=== PATIENT | male | born 1945 | race Hispanic/Latino ===

== ENCOUNTER 2017-06-17 12:02 | Emergency (ER) | payer OTHER ==
[~2017-06-17 12:02] MED LIST: AMLO5TAB2 PO; CYAN1TAB44 PO; FISH1CAP49 PO; LISI40TA4 PO; LORA1TAB3 PO; LOVA20TA3 PO; OXYB5SYR2 PO; TAMS0.4C32 PO; TIMO5DRO35 OU; TRAV2.5D OU; VITA100014 PO
[2017-06-17 12:25] LABS: BASOPHILS % (AUTO) 0.6 % (0.0-5.0); EOSINOPHILS % (AUTO) 5.9 % (0.0-8.0); LYMPHOCYTES % (AUTO) 28.5 % (21.0-51.0); MEAN CORPUSCULAR HEMOGLOBIN 31.8 pg (27.0-33.0); MEAN CORPUSCULAR HGB CONC 34.2 g/dL (32.0-36.0); MEAN CORPUSCULAR VOLUME 93.1 fL (79-99); MONOCYTES % (AUTO) 8.8 % (3.0-13.0); NEUTROPHILS % (AUTO) 56.2 % (40.0-77.0); PLATELET COUNT (AUTO) 159 K/uL (130-400); RED BLOOD CELL COUNT(AUTO) 4.29 MIL/uL (4.50-6.20); RED CELL DISTRIBUTION WIDTH 14.1 % (11.0-15.5); WHITE BLOOD COUNT (AUTO) 6.1 K/uL (4.8-10.8)
[2017-06-17 12:39] LABS: CREATININE 0.8 mg/dL (0.5-1.5); POTASSIUM 3.9 mmol/L (3.5-5.1)
[2017-06-17 12:41] LABS: INR 0.92 (0.85-1.15); PARTIAL THROMBOPLASTIN TIME 25.9 SEC (26.3-35.5); PROTHROMBIN TIME 9.7 SEC (9.6-11.6)
[2017-06-17 12:43] LABS: ALBUMIN 3.5 g/dL (3.5-5.0); BILIRUBIN,TOTAL 0.5 mg/dL (0.2-1.0); TOTAL PROTEIN, SERUM 7.5 g/dL (6.0-8.3)
[2017-06-17] MEDS ORDERED: ASPIRIN 325MG EC TAB 325 MG TABLET.DR PO ONE (13:11)
[2017-07-05] MEDS ORDERED: PANT40TA25 PO (13:59)
[2017-07-05] MEDS ORDERED: FISH1CAP49 PO (13:59)
[2017-07-05] MEDS ORDERED: CHOL500050 PO (13:59)
[2017-07-05] MEDS ORDERED: ATOR20TA65 PO (13:59)
[2017-07-05] MEDS ORDERED: LORA1TAB3 PO (13:59)
[2017-07-05] MEDS ORDERED: RANO500T3 PO (13:59)
[2017-07-05] MEDS ORDERED: BRIM5DRO OU (13:59)
[2017-07-05] MEDS ORDERED: NITR0.4T50 SL (13:59)
[2017-07-05] MEDS ORDERED: OXYB10TA PO (13:59)
[2017-07-05] MEDS ORDERED: METO-408 PO (13:59)
[2017-07-05] MEDS ORDERED: ASPI-1197 PO (13:59)
[2017-07-05] MEDS ORDERED: VITA400C25 PO (13:59)
[2017-07-05] MEDS ORDERED: TRAVATAN OU (13:59)
[2017-07-05] MEDS ORDERED: TAMS0.4C32 PO (13:59)
== END 2017-06-17 13:48 | disposition home or self-care (01) ==
LOC: EDH 12:02
DX: R07.89 Other chest pain (principal); R10.9 Unspecified abdominal pain; R14.0 Abdominal distension (gaseous); E78.5 Hyperlipidemia, unspecified; I10 Essential (primary) hypertension; Z90.49 Acquired absence of other specified parts of digestive tract; Z87.891 Personal history of nicotine dependence
CPT/HCPCS: 36415; 71045; 80053; 82550; 83880; 84484; 85025; 85610; 85730; 93005

== ENCOUNTER 2017-07-07 09:11 | Day surgery (SDC) | payer OTHER ==
[2017-07-05 13:11] VITALS: BP 144/75
[2017-07-05 13:17] LABS: APPEARANCE,URINE Clear (CLEAR); BILIRUBIN,URINE Negative (NEGATIVE); COLOR,URINE Yellow (YELLOW); GLUCOSE, URINE (UA) Negative (NEGATIVE); KETONES,URINE Negative (NEGATIVE); LEUKOCYTE ESTERASE ,URINE Trace (NEGATIVE); NITRATE,URINE Negative (NEGATIVE); OCCULT BLOOD,URINE Negative (NEGATIVE); PROTEIN,URINE Negative (NEGATIVE); UROBILINOGEN,URINE 0.2 mg/dL (0.2-1.0)
[2017-07-05 13:17] LABS: BASOPHILS % (AUTO) 0.4 % (0.0-5.0); EOSINOPHILS % (AUTO) 4.1 % (0.0-8.0); HEMATOCRIT 41.9 % (42-54); LYMPHOCYTES % (AUTO) 23.4 % (21.0-51.0); MEAN CORPUSCULAR HGB CONC 34.3 g/dL (32.0-36.0); MEAN CORPUSCULAR VOLUME 93.3 fL (79-99); MONOCYTES % (AUTO) 7.7 % (3.0-13.0); NEUTROPHILS % (AUTO) 64.4 % (40.0-77.0); PLATELET COUNT (AUTO) 179 K/uL (130-400); RED BLOOD CELL COUNT(AUTO) 4.49 MIL/uL (4.50-6.20); RED CELL DISTRIBUTION WIDTH 14.1 % (11.0-15.5); WHITE BLOOD COUNT (AUTO) 6.9 K/uL (4.8-10.8)
[2017-07-05 13:23] LABS: CREATININE 0.8 mg/dL (0.5-1.5); POTASSIUM 4.5 mmol/L (3.5-5.1)
[2017-07-05 13:28] LABS: BACTERIA,URINE None Seen /HPF (None Seen); RBC,URINE None Seen /HPF (0-1); WBC,URINE 0-1 /HPF (0-1)
[2017-07-05 13:28] LABS: INR 0.96 (0.85-1.15); PARTIAL THROMBOPLASTIN TIME 26.3 SEC (26.3-35.5); PROTHROMBIN TIME 10.1 SEC (9.6-11.6)
[2017-07-05 13:29] LABS: SQUAMOUS EPITHELIAL CELL,UR 0-2 /HPF (0-2)
[2017-07-07] VITALS (10 sets, daily range): BP systolic 99–132; BP diastolic 60–72
[~2017-07-07] VITALS: Ht 167.6 cm; Wt 82.7 kg
[~2017-07-07 09:11] MED LIST changes: +ASPI-1197 PO; +ATOR20TA65 PO; +BRIM5DRO OU; +CHOL500050 PO; -CYAN1TAB44 PO; -LOVA20TA3 PO; +METO-408 PO; +NITR0.4T50 SL; +OXYB10TA PO; -OXYB5SYR2 PO; +PANT40TA25 PO; +RANO500T3 PO; -TIMO5DRO35 OU; -TRAV2.5D OU; +TRAVATAN OU; -VITA100014 PO; +VITA400C25 PO
[2017-07-07] MEDS ORDERED: SODIUM CHLORIDE 0.9% 1000ML 1,000 ML IV ONE (10:18)
[2017-07-07] MEDS ORDERED: LIDOCAINE HCL 1% 20 ML VIAL ONE (12:09)
[2017-07-07] MEDS ORDERED: IOPAMIDOL-370 100 ML VIAL IV ONE (12:09)
[2017-07-07] MEDS ORDERED: ISOVUE-370 50ML VIAL IV ONE (12:09)
[2017-07-07] MEDS ORDERED: DEXTROSE 50%-WATER 50 ML DISP.SYRIN IV PRN (12:45)
[2017-07-07] MEDS ORDERED: GLUCAGON 1MG KIT 1 MG ML IM PRN (12:45)
== END 2017-07-07 17:00 | disposition home or self-care (01) ==
LOC: DAH 09:11
PROVIDERS: ATTEND Internal Medicine Cardiovascular Disease
DX: I25.118 Atherosclerotic heart disease of native coronary artery with other forms of angina pectoris (principal); I99.8 Other disorder of circulatory system; I10 Essential (primary) hypertension; E78.5 Hyperlipidemia, unspecified; F41.9 Anxiety disorder, unspecified; N40.0 Benign prostatic hyperplasia without lower urinary tract symptoms; Z82.49 Family history of ischemic heart disease and other diseases of the circulatory system; K22.70 Barrett's esophagus without dysplasia; Z79.01 Long term (current) use of anticoagulants; Z79.899 Other long term (current) drug therapy; Z90.49 Acquired absence of other specified parts of digestive tract; Z87.891 Personal history of nicotine dependence
CPT/HCPCS: 36415; 71045; 80048; 81001; 85025; 85610; 85730; 93005; 93458; A4606; C1760; C1894; J1644; J7030; Q9967 ×2

== ENCOUNTER 2017-09-19 00:21 | Emergency (ER) | payer OTHER ==
[~2017-09-19 00:21] MED LIST changes: -RANO500T3 PO
[2017-09-19] MEDS ORDERED: ASPIRIN 325 MG TABLET ONE (00:24)
[2017-09-19 00:38] LABS: BASOPHILS % (AUTO) 1.7 % (0.0-5.0); EOSINOPHILS % (AUTO) 5.6 % (0.0-8.0); LYMPHOCYTES % (AUTO) 24.1 % (21.0-51.0); MEAN CORPUSCULAR HGB CONC 34.1 g/dL (32.0-36.0); MEAN CORPUSCULAR VOLUME 93.8 fL (79-99); MONOCYTES % (AUTO) 7.4 % (3.0-13.0); NEUTROPHILS % (AUTO) 61.2 % (40.0-77.0); PLATELET COUNT (AUTO) 154 K/uL (130-400); RED BLOOD CELL COUNT(AUTO) 4.05 MIL/uL (4.50-6.20); RED CELL DISTRIBUTION WIDTH 13.6 % (11.0-15.5); WHITE BLOOD COUNT (AUTO) 6.3 K/uL (4.8-10.8)
[2017-09-19 00:43] LABS: CARBON DIOXIDE 30 mmol/L (21-32); CHLORIDE 103 mmol/L (101-111); CREATININE 0.8 mg/dL (0.5-1.5); GLOMERULAR FILTR. RATE CALC 101 mL/min (>60); GLUCOSE,RANDOM 159 mg/dL (70-105); POTASSIUM 3.5 mmol/L (3.5-5.1); SODIUM SERUM 139 mmol/L (136-145); UREA NITROGEN, BLOOD 12 mg/dL (7-18)
[2017-09-19 00:58] LABS: ALANINE AMINOTRANSFERASE 26 U/L (12-78); ALBUMIN 3.4 g/dL (3.5-5.0); ASPARTATE AMINOTRANSFERASE 15 U/L (10-37); BILIRUBIN,TOTAL 0.5 mg/dL (0.2-1.0); CREATINE KINASE MB 2.2 ng/mL (0.5-3.6); CREATINE KINASE, TOTAL 158 U/L (21-232); MYOGLOBIN 66 ng/mL (10-92); TOTAL PROTEIN, SERUM 6.9 g/dL (6.0-8.3); TROPONIN I < 0.04 ng/mL (0.00-0.06)
[2017-09-19] MEDS ORDERED: LIDOCAINE HCL 2% VISCOUS 15 ML UDCUP ONE (01:09)
[2017-09-19] MEDS ORDERED: MAGNESIUM HYDROXIDE 30 ML/UDCUP ONE (01:09)
== END 2017-09-19 04:05 | disposition home or self-care (01) ==
LOC: EDH 00:21
DX: R07.9 Chest pain, unspecified (principal); R10.13 Epigastric pain; I10 Essential (primary) hypertension; E78.5 Hyperlipidemia, unspecified; I25.10 Atherosclerotic heart disease of native coronary artery without angina pectoris
CPT/HCPCS: 36415; 71046; 80053; 82550; 82553; 83874; 84484; 85025; 93005; 99291

== ENCOUNTER 2018-06-06 06:27 | Day surgery (SDC) | payer OTHER ==
[~2018-06-06] VITALS: Ht 167.6 cm; Wt 83.0 kg
[2018-06-06] VITALS (9 sets, daily range): BP systolic 71–115; BP diastolic 31–67
[~2018-06-06 06:27] MED LIST changes: -AMLO5TAB2 PO; +CHOL400T33 PO; -CHOL500050 PO; -NITR0.4T50 SL
[2018-06-06] MEDS: SODIUM CHLORIDE 0.9% 1000ML 1,000 ML IV ONE (07:43)
== END 2018-06-06 09:00 | disposition home or self-care (01) ==
LOC: DAH 06:27 → ENDO 06:27
PROVIDERS: ATTEND Internal Medicine
DX: K29.50 Unspecified chronic gastritis without bleeding (principal); K22.70 Barrett's esophagus without dysplasia; F41.9 Anxiety disorder, unspecified; K21.9 Gastro-esophageal reflux disease without esophagitis; Z86.010 Personal history of colon polyps; Z79.899 Other long term (current) drug therapy; Z98.890 Other specified postprocedural states; I25.10 Atherosclerotic heart disease of native coronary artery without angina pectoris; I11.0 Hypertensive heart disease with heart failure; I50.20 Unspecified systolic (congestive) heart failure
CPT/HCPCS: 43239; 88305; 93005; A4606; J7030

== ENCOUNTER 2018-06-06 19:58 | Emergency (ER) | payer OTHER ==
[2018-06-06 20:39] LABS: APPEARANCE,URINE Clear (CLEAR); BILIRUBIN,URINE Negative (NEGATIVE); COLOR,URINE Yellow (YELLOW); GLUCOSE, URINE (UA) Negative (NEGATIVE); KETONES,URINE Negative (NEGATIVE); LEUKOCYTE ESTERASE ,URINE Negative (NEGATIVE); NITRATE,URINE Negative (NEGATIVE); OCCULT BLOOD,URINE Negative (NEGATIVE); PROTEIN,URINE Negative (NEGATIVE); UROBILINOGEN,URINE 0.2 mg/dL (0.2-1.0)
[2018-06-06 21:09] LABS: CREATININE 0.8 mg/dL (0.5-1.5); POTASSIUM 4.1 mmol/L (3.5-5.1)
== END 2018-06-06 22:27 | disposition home or self-care (01) ==
LOC: EDH 19:58
DX: R35.0 Frequency of micturition (principal); R10.9 Unspecified abdominal pain; I25.10 Atherosclerotic heart disease of native coronary artery without angina pectoris; E78.5 Hyperlipidemia, unspecified; I10 Essential (primary) hypertension; Z90.49 Acquired absence of other specified parts of digestive tract
CPT/HCPCS: 36415; 74018; 80048; 81003

== ENCOUNTER 2018-06-25 12:16 | Observation (INO) | payer OTHER ==
[~2018-06-25] VITALS: Ht 170.2 cm; Wt 83.6 kg
[2018-06-25 12:42] LABS: BASOPHILS % (AUTO) 0.4 % (0.0-5.0); EOSINOPHILS % (AUTO) 5.5 % (0.0-8.0); HEMATOCRIT 41.2 % (42-54); LYMPHOCYTES % (AUTO) 26.7 % (21.0-51.0); MEAN CORPUSCULAR HEMOGLOBIN 31.6 pg (27.0-33.0); MEAN CORPUSCULAR HGB CONC 33.6 g/dL (32.0-36.0); MEAN CORPUSCULAR VOLUME 93.9 fL (79-99); MONOCYTES % (AUTO) 7.3 % (3.0-13.0); NEUTROPHILS % (AUTO) 60.1 % (40.0-77.0); PLATELET COUNT (AUTO) 160 K/uL (130-400); RED BLOOD CELL COUNT(AUTO) 4.39 MIL/uL (4.50-6.20); RED CELL DISTRIBUTION WIDTH 13.7 % (11.0-15.5); WHITE BLOOD COUNT (AUTO) 5.9 K/uL (4.8-10.8)
[2018-06-25 12:48] LABS: CREATININE 0.9 mg/dL (0.5-1.5); POTASSIUM 4.1 mmol/L (3.5-5.1)
[2018-06-25 12:53] LABS: ALBUMIN 3.5 g/dL (3.5-5.0); BILIRUBIN,TOTAL 0.7 mg/dL (0.2-1.0); TOTAL PROTEIN, SERUM 7.6 g/dL (6.0-8.3)
[2018-06-25] MEDS ORDERED: ASPIRIN 325 MG TABLET ONE (15:05)
[2018-06-25 20:16] LABS: CREATINE KINASE, TOTAL 135 U/L (21-232); MYOGLOBIN 67 ng/mL (10-92); TROPONIN I < 0.04 ng/mL (0.00-0.06)
[2018-06-26 00:07] VITALS: BP 132/74
[2018-06-26] MEDS ORDERED: LORA1TAB3 PO (01:07)
[2018-06-26] MEDS ORDERED: AMLO5TAB9 PO (01:07)
[2018-06-26] MEDS ORDERED: HYDR-3421 PO (01:07)
[2018-06-26] MEDS ORDERED: NITR0.4T50 SL (01:07)
[2018-06-26] MEDS ORDERED: TRAV5DRO OU (01:07)
[2018-06-26 02:55] LABS: CREATINE KINASE, TOTAL 121 U/L (21-232); MYOGLOBIN 112 ng/mL (10-92); TROPONIN I < 0.04 ng/mL (0.00-0.06)
[2018-06-26 04:32] VITALS: BP 110/71
[2018-06-26] MEDS: NITROGLYCERIN 1GM/1 INCH PACKET TD SCH ×2 (05:29→12:55)
[2018-06-26 08:00] VITALS: BP 136/81
[2018-06-26 08:40] LABS: CREATINE KINASE, TOTAL 190 U/L (21-232); MYOGLOBIN 114 ng/mL (10-92); TROPONIN I < 0.04 ng/mL (0.00-0.06)
[2018-06-26] MEDS ORDERED: ASPIRIN 81 MG EC TAB PO SCH (09:00)
[2018-06-26 12:00] VITALS: BP 120/70
[2018-06-26] MEDS ORDERED: NITROGLYCERIN 0.4 MG SL TAB SL SCH (13:15)
[2018-06-26] MEDS ORDERED: LORAZEPAM 1 MG TABLET PO PRN (13:15)
[2018-06-26] MEDS ORDERED: NITROGLYCERIN 1GM/1 INCH PACKET TD SCH (13:32)
[2018-06-26 16:00] VITALS: BP 122/78
--- NOTE | 2018-06-26 18:32 | NUR ---
PATIENT DISCHARGE PATIENT DISCHARGED, IV DISCONTINUED, CATHLON INTACT, BLEEDING CONTROLLED, PATIENT TOLERATED WITHOUT INCIDENT. TELE REMOVED AND RETURNED.
[2018-06-26] MEDS ORDERED: TIMOLOL MALEATE 0.5% 5 ML BOTTLE OU SCH (21:00)
[2018-06-26] MEDS ORDERED: BRIMONIDINE TARTRATE 0.2% 5 ML BOTTLE OU SCH (21:00)
[2018-06-26] MEDS ORDERED: ATORVASTATIN CALCIUM 20 MG TABLET PO SCH (21:00)
[2018-06-26] MEDS ORDERED: METOPROLOL TARTRATE 25 MG TAB PO SCH (21:00)
[2018-06-26] MEDS ORDERED: HYDROXYZINE HCL 25 MG TABLET PO SCH (21:00)
[2018-06-26] MEDS ORDERED: ASPIRIN 81MG TAB.CHEW PO SCH (21:00)
[2018-06-26] MEDS ORDERED: LATANOPROST 2.5 ML DROPS OU SCH (21:00)
[2018-06-27] MEDS ORDERED: LISINOPRIL 40 MG TABLET PO SCH (09:00)
[2018-06-27] MEDS ORDERED: **HM** VIT D3 400 UNITS PO SCH (09:00)
[2018-06-27] MEDS ORDERED: OXYBUTYNIN CHLORIDE 5 MG TABLET PO SCH (09:00)
[2018-06-27] MEDS ORDERED: FISH OIL 1000 MG/CAP PO SCH (09:00)
[2018-06-27] MEDS ORDERED: AMLODIPINE BESYLATE 5 MG TAB PO SCH (09:00)
[2018-06-27] MEDS ORDERED: VITAMIN E 400 UNIT CAPSULE PO SCH (09:00)
[2018-06-27] MEDS ORDERED: TAMSULOSIN HCL 0.4 MG CAP.ER.24H PO SCH (09:00)
[2018-06-28] MEDS ORDERED: PANTOPRAZOLE SODIUM 40 MG TABLET.DR PO SCH (09:00)
== END 2018-06-26 18:30 | disposition home or self-care (01) ==
LOC: EDH 12:16 → EDHIP 18:17 → 3DH 23:54
PROVIDERS: ADMIT Internal Medicine; ATTEND Internal Medicine
DX: R07.89 Other chest pain (principal); G89.4 Chronic pain syndrome; I10 Essential (primary) hypertension; E78.5 Hyperlipidemia, unspecified; I25.10 Atherosclerotic heart disease of native coronary artery without angina pectoris; F41.9 Anxiety disorder, unspecified; Z79.899 Other long term (current) drug therapy
CPT/HCPCS: 36415 ×2; 71045; 80053; 82550 ×3; 82948; 83874 ×3; 84484 ×4; 85025; 93005 ×4; 99284; G0378 ×24

== ENCOUNTER 2018-07-01 23:01 | Observation (INO) | payer OTHER ==
[~2018-07-01] VITALS: Ht 170.2 cm; Wt 84.8 kg
[~2018-07-01 23:01] MED LIST changes: +AMLO5TAB9 PO; +HYDR-3421 PO; +NITR0.4T50 SL; +TRAV5DRO OU; -TRAVATAN OU
[2018-07-01] MEDS ORDERED: ASPIRIN 325 MG TABLET ONE (23:13)
[2018-07-01 23:31] LABS: BASOPHILS % (AUTO) 0.7 % (0.0-5.0); EOSINOPHILS % (AUTO) 5.9 % (0.0-8.0); HEMATOCRIT 40.9 % (42-54); LYMPHOCYTES % (AUTO) 26.8 % (21.0-51.0); MEAN CORPUSCULAR HEMOGLOBIN 31.4 pg (27.0-33.0); MEAN CORPUSCULAR HGB CONC 33.7 g/dL (32.0-36.0); MONOCYTES % (AUTO) 6.6 % (3.0-13.0); PLATELET COUNT (AUTO) 177 K/uL (130-400); RED CELL DISTRIBUTION WIDTH 13.4 % (11.0-15.5); WHITE BLOOD COUNT (AUTO) 7.5 K/uL (4.8-10.8)
[2018-07-01 23:51] LABS: CREATININE 0.8 mg/dL (0.5-1.5)
[2018-07-01 23:53] LABS: INR 0.9 (0.85-1.15); PARTIAL THROMBOPLASTIN TIME 26.9 SEC (26.3-35.5); PROTHROMBIN TIME 9.5 SEC (9.6-11.6)
[2018-07-01 23:56] LABS: ALBUMIN 3.6 g/dL (3.5-5.0); BILIRUBIN,TOTAL 0.3 mg/dL (0.2-1.0); TOTAL PROTEIN, SERUM 7.4 g/dL (6.0-8.3)
[2018-07-02] MEDS ORDERED: ONDANSETRON HCL 4 MG/2 ML VIAL IV PRN (01:45)
[2018-07-02] MEDS ORDERED: ACETAMINOPHEN 325 MG TAB PO PRN ×2 (01:45)
[2018-07-02] MEDS ORDERED: MORPHINE SULFATE 4 MG/1ML SYG IV PRN (01:45)
[2018-07-02 02:50] VITALS: BP 156/99
[2018-07-02] MEDS: NITROGLYCERIN 1GM/1 INCH PACKET TD SCH ×3 (04:24→18:02)
[2018-07-02 07:30] VITALS: BP 133/79
[2018-07-02] MEDS ORDERED: ASPIRIN 325 MG TABLET PO SCH (09:00)
[2018-07-02] MEDS ORDERED: ENOXAPARIN SODIUM 30 MG/0.3 ML SQ SCH (09:00)
[2018-07-02] MEDS ORDERED: FAMOTIDINE/PF 20 MG/2 ML VIAL IV SCH (09:00)
[2018-07-02] MEDS ORDERED: METOPROLOL TARTRATE 25 MG TAB PO SCH (09:00)
[2018-07-02] MEDS ORDERED: ATORVASTATIN CALCIUM 20 MG TABLET PO SCH (09:30)
[2018-07-02 11:00] VITALS: BP 141/75
[2018-07-02 16:00] VITALS: BP 151/85
--- NOTE | 2018-07-02 17:00 | NUR ---
CM NOTE CHART REVIEWED, PT TO BE DCD TODAY, OBS STATUS, NO CONCERNS VOICED TO PRIMARY RN, NO TRIGGERS TO CM, IA DEFERRED
[2018-07-02 19:20] VITALS: BP 151/96
--- NOTE | 2018-07-02 20:01 | NUR ---
PATIENT GIVEN DISCHARGE INSTRUCTION AND VERBALIZED UNDERSTAND , IV REMOVED WITH CATHETER INTACT AND SITE DRESSED. PATIENT INSTRUCTED TO FOLLOW-UP WITH PCP IN ONE WEEK AND WITH DR PROCTOR NEEDED . SUMMARY OF CARE PRINTED AND GIVEN TO PATIENT . NO QUESTIONS OR CONCERNS AT THIS TIME AND PATIENT TRANSPORTED VIA WHEELCHAIR TO LOBBY WITH FAMILY BY SIDE.
[2018-07-03] MEDS ORDERED: ATORVASTATIN CALCIUM 20 MG TABLET PO SCH (21:00)
== END 2018-07-02 20:00 | disposition home or self-care (01) ==
LOC: EDH 23:01 → EDHIP 07-02 01:25 → INTOOBSV 07-02 01:25 → 3BH 07-02 02:36
PROVIDERS: ADMIT Internal Medicine Pulmonary Disease; ATTEND Internal Medicine Pulmonary Disease
DX: R07.89 Other chest pain (principal); F45.8 Other somatoform disorders; E66.9 Obesity, unspecified; E78.5 Hyperlipidemia, unspecified; I10 Essential (primary) hypertension; K21.9 Gastro-esophageal reflux disease without esophagitis; K22.70 Barrett's esophagus without dysplasia; I65.22 Occlusion and stenosis of left carotid artery; F41.9 Anxiety disorder, unspecified; Z79.82 Long term (current) use of aspirin; Z80.9 Family history of malignant neoplasm, unspecified; Z82.0 Family history of epilepsy and other diseases of the nervous system; Z82.3 Family history of stroke; Z82.49 Family history of ischemic heart disease and other diseases of the circulatory system; Z82.5 Family history of asthma and other chronic lower respiratory diseases; Z83.3 Family history of diabetes mellitus; Z79.899 Other long term (current) drug therapy
CPT/HCPCS: 36415; 70450; 71045; 80053; 84484 ×3; 85025; 85610; 85730; 93005; 93306; 93880; 96372; 96374; 99284; G0378 ×19; J1650; J3490

== ENCOUNTER → 2020-05-07 | Outpatient (CLI) | payer OTHER ==
[~2020-05-07] MED LIST changes: +AMLO-257 PO; -AMLO5TAB9 PO; -LISI40TA4 PO; +LISI40TA9 PO; -OXYB10TA PO; +OXYB10TA30 PO; -PANT40TA25 PO; +PANT40TA54 PO
== END | disposition home or self-care (01) ==
LOC: SHCH 10:00
PROVIDERS: ATTEND Internal Medicine Cardiovascular Disease
DX: I65.23 Occlusion and stenosis of bilateral carotid arteries (principal); I25.10 Atherosclerotic heart disease of native coronary artery without angina pectoris
CPT/HCPCS: 93880

== ENCOUNTER → 2020-07-13 | Outpatient (CLI) | payer OTHER | END | disposition home or self-care (01) | LOC: RAH 07:38 | PROVIDERS: ATTEND Internal Medicine Gastroenterology | DX: R10.13 Epigastric pain (principal); Z90.49 Acquired absence of other specified parts of digestive tract | CPT/HCPCS: 76700 ==

== ENCOUNTER → 2020-10-09 | Outpatient (CLI) | payer OTHER | END | disposition home or self-care (01) | LOC: RAH 10:41 | PROVIDERS: ATTEND Internal Medicine Gastroenterology | DX: R10.13 Epigastric pain (principal) | CPT/HCPCS: 78264; A9541 ==

== ENCOUNTER 2020-12-11 09:04 | Observation (INO) | payer OTHER ==
[~2020-12-11] VITALS: Ht 165.1 cm; Wt 77.9 kg
[2020-12-11 09:24] LABS: BASOPHILS % (AUTO) 0.5 % (0.0-5.0); EOSINOPHILS % (AUTO) 5.5 % (0.0-8.0); HEMATOCRIT 40.5 % (42-54); LYMPHOCYTES % (AUTO) 21.2 % (21.0-51.0); MEAN CORPUSCULAR HEMOGLOBIN 30.6 pg (27.0-33.0); MEAN CORPUSCULAR HGB CONC 32.6 g/dL (32.0-36.0); MONOCYTES % (AUTO) 7.5 % (3.0-13.0); PLATELET COUNT (AUTO) 145 K/uL (130-400); RED BLOOD CELL COUNT(AUTO) 4.31 MIL/uL (4.50-6.20); WHITE BLOOD COUNT (AUTO) 6.4 K/uL (4.8-10.8)
[2020-12-11] MEDS ORDERED: ASPIRIN 81MG CHEW TAB PO SCH (09:30)
[2020-12-11] MEDS ORDERED: NITROGLYCERIN 1GM OINT 1 INCH/1GM TD SCH (09:30)
[2020-12-11 09:40] LABS: ALBUMIN 3.1 g/dL (3.5-5.0); BILIRUBIN,TOTAL 0.5 mg/dL (0.2-1.0); CREATININE 0.9 mg/dL (0.5-1.5); POTASSIUM 4.3 mmol/L (3.5-5.1); TOTAL PROTEIN, SERUM 6.7 g/dL (6.0-8.3)
[2020-12-11 09:45] LABS: INR 0.96 (0.85-1.15); PROTHROMBIN TIME 10.5 SEC (9.6-11.6)
[2020-12-11 09:46] LABS: APPEARANCE,URINE Clear (CLEAR); BILIRUBIN,URINE Negative (NEGATIVE); COLOR,URINE Yellow (YELLOW); GLUCOSE, URINE (UA) Negative (NEGATIVE); KETONES,URINE Negative (NEGATIVE); LEUKOCYTE ESTERASE ,URINE Negative (NEGATIVE); NITRATE,URINE Negative (NEGATIVE); OCCULT BLOOD,URINE Negative (NEGATIVE); PH,URINE 6.5 (5.0-8.0); PROTEIN,URINE POS 2+ mg/dL (NEGATIVE)
[2020-12-11 09:47] LABS: PARTIAL THROMBOPLASTIN TIME 28.4 SEC (26.3-35.5)
[2020-12-11 09:52] LABS: B-TYPE NATRIURETIC PEPTIDE 54 pg/mL (0-100)
[2020-12-11 10:31] VITALS: BP 128/73
[2020-12-11] MEDS ORDERED: CLONIDINE HCL 0.1 MG TABLET PO PRN (12:30)
[2020-12-11] MEDS ORDERED: ACETAMINOPHEN 650 MG SUPPOSITORY RC PRN (12:30)
[2020-12-11] MEDS ORDERED: HYDRALAZINE 20MG/ML VIAL IV PRN (12:30)
[2020-12-11] MEDS ORDERED: ASPIRIN 325MG TAB PO ONE (12:30)
[2020-12-11] MEDS ORDERED: LACTULOSE 20 GM/30 ML UDCUP PO PRN (12:30)
[2020-12-11] MEDS ORDERED: ONDANSETRON 4MG INJ IVP PRN (12:30)
[2020-12-11] MEDS ORDERED: IOHEXOL 350 MG/ML 100ML INFUS..BTL IV ONE (12:48)
[2020-12-11] MEDS: ACETAMINOPHEN 325 MG TAB PO PRN (12:50)
[2020-12-11 16:29] VITALS: BP 170/94
[2020-12-11 19:49] VITALS: BP 154/83
[2020-12-11 21:28] VITALS: BP 142/84
[2020-12-11 22:52] VITALS: BP 125/71
[2020-12-11 23:10] VITALS: BP 152/94
[2020-12-11] MEDS ORDERED: TAMS-1 PO (23:43)
[2020-12-11] MEDS ORDERED: ASPI-1197 PO (23:43)
[2020-12-11] MEDS ORDERED: SERT-439 PO (23:43)
[2020-12-11] MEDS ORDERED: PANT40TA54 PO (23:43)
[2020-12-12 04:00] VITALS: BP 164/84
[2020-12-12 06:28] LABS: BASOPHILS % (AUTO) 0.5 % (0.0-5.0); HEMATOCRIT 43.7 % (42-54); LYMPHOCYTES % (AUTO) 18.9 % (21.0-51.0); MEAN CORPUSCULAR HEMOGLOBIN 30.4 pg (27.0-33.0); MEAN CORPUSCULAR HGB CONC 31.8 g/dL (32.0-36.0); MEAN CORPUSCULAR VOLUME 95.6 fL (79-99); MONOCYTES % (AUTO) 7.5 % (3.0-13.0); NEUTROPHILS % (AUTO) 68.6 % (40.0-77.0); PLATELET COUNT (AUTO) 149 K/uL (130-400); RED BLOOD CELL COUNT(AUTO) 4.57 MIL/uL (4.50-6.20); RED CELL DISTRIBUTION WIDTH 13.2 % (11.0-15.5); WHITE BLOOD COUNT (AUTO) 7.6 K/uL (4.8-10.8)
[2020-12-12 06:52] LABS: CREATININE 0.7 mg/dL (0.5-1.5); HEMOGLOBIN A1C 6.1 % (4.0-6.0); MAGNESIUM 2.1 mg/dL (1.80-2.40); POTASSIUM 3.7 mmol/L (3.5-5.1); THYROID STIMULATING HORMONE 1.73 uIU/mL (0.36-3.74)
[2020-12-12 07:29] LABS: B-TYPE NATRIURETIC PEPTIDE 94 pg/mL (0-100)
[2020-12-12] MEDS: ASPIRIN 81MG CHEW TAB PO SCH (07:41)
[2020-12-12] MEDS: POLYETHYLENE GLYCOL 3350 17 GM POWD.PACK PO SCH (07:42)
[2020-12-12] MEDS: PANTOPRAZOLE 40 MG TAB DR PO SCH (07:42)
[2020-12-12] MEDS: ENOXAPARIN SODIUM 40 MG/0.4 ML SYRINGE SQ SCH (07:42)
[2020-12-12 08:00] VITALS: BP 172/87
[2020-12-12 12:00] VITALS: BP 150/96
[2020-12-12 16:00] VITALS: BP 150/89
[2020-12-12] MEDS ORDERED: LORAZEPAM 1 MG TABLET PO PRN (18:00)
[2020-12-12] MEDS ORDERED: NITROGLYCERIN 0.4 MG SL TAB SL SCH (18:00)
[2020-12-12 20:00] VITALS: BP 156/90
[2020-12-12] MEDS: Brimonidine Tartrate/Timolol (Combigan Eye Drops) OU SCH (20:22)
[2020-12-12] MEDS ORDERED: ATORVASTATIN 20 MG TABLET PO SCH (21:00)
[2020-12-13] VITALS: BP 160/88
[2020-12-13] MEDS: ACETAMINOPHEN 325 MG TAB PO PRN (01:57)
[2020-12-13 04:00] VITALS: BP 141/96
[2020-12-13 05:10] LABS: HEMATOCRIT 40.9 % (42-54); MEAN CORPUSCULAR HEMOGLOBIN 30.8 pg (27.0-33.0); MEAN CORPUSCULAR VOLUME 93.2 fL (79-99); RED BLOOD CELL COUNT(AUTO) 4.39 MIL/uL (4.50-6.20); RED CELL DISTRIBUTION WIDTH 13.2 % (11.0-15.5); WHITE BLOOD COUNT (AUTO) 6.8 K/uL (4.8-10.8)
[2020-12-13 05:24] LABS: CREATININE 0.9 mg/dL (0.5-1.5)
[2020-12-13] MEDS: ASPIRIN 81MG CHEW TAB PO SCH (07:39)
[2020-12-13] MEDS: PANTOPRAZOLE 40 MG TAB DR PO SCH (07:39)
[2020-12-13] MEDS: POLYETHYLENE GLYCOL 3350 17 GM POWD.PACK PO SCH (07:40)
[2020-12-13] MEDS: ENOXAPARIN SODIUM 40 MG/0.4 ML SYRINGE SQ SCH (07:40)
[2020-12-13] MEDS: Brimonidine Tartrate/Timolol (Combigan Eye Drops) OU SCH (07:40)
[2020-12-13 08:00] VITALS: BP 159/92
[2020-12-13] MEDS ORDERED: OXYBUTYNIN 5 MG TAB.SR.24H PO SCH (09:00)
[2020-12-13] MEDS ORDERED: CHOLECALCIFEROL 400 UNIT PO SCH (09:00)
[2020-12-13] MEDS ORDERED: METOPROLOL SUCCINATE 50 MG TAB.SR.24H PO SCH (09:00)
[2020-12-13] MEDS ORDERED: ASPIRIN 81MG CHEW TAB PO SCH (09:00)
[2020-12-13] MEDS ORDERED: LISINOPRIL 40 MG TABLET PO SCH (09:00)
[2020-12-13 12:00] VITALS: BP 165/94
[2020-12-13] MEDS ORDERED: PANTOPRAZOLE 40 MG TAB DR PO SCH (21:00)
[2020-12-13] MEDS ORDERED: TAMSULOSIN HCL 0.4 MG CAP.ER.24H PO SCH (21:00)
[2020-12-13] MEDS ORDERED: SERTRALINE HCL 50 MG TABLET PO SCH (21:00)
== END 2020-12-13 12:30 | disposition home or self-care (01) ==
LOC: EDH 09:04 → EDHIP 12:15 → UNDOADMOB 13:06 → 4BH 12-12 00:27
PROVIDERS: ADMIT Internal Medicine; ATTEND Internal Medicine
DX: R07.89 Other chest pain (principal); R55 Syncope and collapse; I11.0 Hypertensive heart disease with heart failure; I50.9 Heart failure, unspecified; I25.111 Atherosclerotic heart disease of native coronary artery with angina pectoris with documented spasm; F41.9 Anxiety disorder, unspecified; N40.0 Benign prostatic hyperplasia without lower urinary tract symptoms; H40.9 Unspecified glaucoma; K22.70 Barrett's esophagus without dysplasia; I65.22 Occlusion and stenosis of left carotid artery; E78.00 Pure hypercholesterolemia, unspecified; Z79.82 Long term (current) use of aspirin; Z79.899 Other long term (current) drug therapy; Z87.891 Personal history of nicotine dependence; W19.XXXA Unspecified fall, initial encounter; Y92.89 Other specified places as the place of occurrence of the external cause; Y93.89 Activity, other specified; Y99.8 Other external cause status
CPT/HCPCS: 36415 ×3; 70450; 71045; 71275; 80048 ×2; 80053; 81003; 82550 ×4; 83036; 83605; 83735; 83874 ×3; 83880 ×2; 84100; 84145; 84443; 84484 ×4; 85025 ×2; 85027; 85378; 85610; 85730; 93005 ×2; 93306; 93356; 93880; 96372 ×2; 99285; G0378 ×47; J1650 ×2; Q9967

== ENCOUNTER 2021-05-09 10:34 | Emergency (ER) | payer OTHER ==
[~2021-05-09] VITALS: Ht 162.6 cm; Wt 79.4 kg
[~2021-05-09 10:34] MED LIST changes: -AMLO-257 PO; -FISH1CAP49 PO; -HYDR-3421 PO; +SERT-439 PO; +TAMS-1 PO; -TAMS0.4C32 PO; -VITA400C25 PO
[2021-05-09] MEDS ORDERED: ACETAMINOPHEN 500 MG TABLET PO ONE (11:00)
[2021-05-09 11:58] VITALS: BP 166/84
== END 2021-05-09 12:30 | disposition home or self-care (01) ==
LOC: EDH 10:34
DX: S00.03XA Contusion of scalp, initial encounter (principal); S50.312A Abrasion of left elbow, initial encounter; F32.A Depression, unspecified; F41.9 Anxiety disorder, unspecified; I11.0 Hypertensive heart disease with heart failure; I50.9 Heart failure, unspecified; E78.00 Pure hypercholesterolemia, unspecified; Z79.82 Long term (current) use of aspirin; Z79.899 Other long term (current) drug therapy; Z90.49 Acquired absence of other specified parts of digestive tract; W18.39XA Other fall on same level, initial encounter; Y93.89 Activity, other specified; Y92.89 Other specified places as the place of occurrence of the external cause; Y99.8 Other external cause status
CPT/HCPCS: 70450; 72125

== ENCOUNTER 2022-07-24 21:36 | Emergency (ER) | payer OTHER ==
[~2022-07-24] VITALS: Ht 167.6 cm; Wt 81.6 kg
[2022-07-24] MEDS ORDERED: HYDRALAZINE 25MG TABLET PO SCH (22:30)
[2022-07-24] MEDS ORDERED: HYDRALAZINE 20MG/ML VIAL IV ONE (22:30)
[2022-07-24 22:58] LABS: BASOPHILS % (AUTO) 0.5 % (0.0-5.0); EOSINOPHILS % (AUTO) 5.8 % (0.0-8.0); HEMATOCRIT 38.5 % (42-54); LYMPHOCYTES % (AUTO) 33.6 % (21.0-51.0); MEAN CORPUSCULAR HEMOGLOBIN 31.1 pg (27.0-33.0); MEAN CORPUSCULAR HGB CONC 32.7 g/dL (32.0-36.0); MEAN CORPUSCULAR VOLUME 95.1 fL (79-99); MONOCYTES % (AUTO) 10.2 % (3.0-13.0); NEUTROPHILS % (AUTO) 49.6 % (40.0-77.0); PLATELET COUNT (AUTO) 131 K/uL (130-400); RED BLOOD CELL COUNT(AUTO) 4.05 MIL/uL (4.50-6.20); RED CELL DISTRIBUTION WIDTH 13.1 % (11.0-15.5); WHITE BLOOD COUNT (AUTO) 6.4 K/uL (4.8-10.8)
[2022-07-24 23:02] VITALS: BP 131/57
[2022-07-24 23:08] LABS: CREATININE 0.7 mg/dL (0.5-1.5); POTASSIUM 3.6 mmol/L (3.5-5.1)
[2022-07-24 23:17] LABS: ALBUMIN 3.1 g/dL (3.5-5.0); TOTAL PROTEIN, SERUM 6.4 g/dL (6.0-8.3)
== END 2022-07-24 23:48 | disposition home or self-care (01) ==
LOC: EDH 21:36
DX: I16.0 Hypertensive urgency (principal); I11.0 Hypertensive heart disease with heart failure; I25.10 Atherosclerotic heart disease of native coronary artery without angina pectoris; I50.9 Heart failure, unspecified; E78.00 Pure hypercholesterolemia, unspecified; F32.A Depression, unspecified; F41.9 Anxiety disorder, unspecified; Z90.49 Acquired absence of other specified parts of digestive tract; Z79.899 Other long term (current) drug therapy; Z98.890 Other specified postprocedural states
CPT/HCPCS: 36415; 80053; 85025; 93005

== ENCOUNTER 2024-06-20 07:53 | Emergency (ER) | payer OTHER ==
[~2024-06-20] VITALS: Ht 167.6 cm; Wt 80.7 kg
--- NOTE | 2024-06-20 08:07 | ERN ---
General Chief Complaint: Mechanical Fall Stated Complaint: TRIP AND FALL Time Seen by MD: 07:57 History of Present Illness Initial Comments 79-year-old male presents for a fall. Patient had a mechanical trip and fall while getting out of bed this morning. It was head on the wall. No loss of consciousness. GCS 15. No vomiting. He was small laceration on the bridge of the nose otherwise denies any trauma. There is a small subconjunctival hemorrhage in the right eye. Allergies: Coded Allergies: No Known Drug Allergies (Unverified Allergy, Unknown, 12/16/15) Home Meds Reported Medications Aspirin (Aspirin) 81 Mg Tab.chew, 81 MG PO AM, TAB.CHEW 12/11/20 Pantoprazole Sodium (Pantoprazole Sodium) 40 Mg Tablet.dr, 40 MG PO HS, TAB 12/11/20 Sertraline HCl (Sertraline HCl) 50 Mg Tablet, 50 MG PO HS, TAB 12/11/20 Tamsulosin HCl (Flomax) 0.4 Mg Cap.er.24h, 0.4 MG PO HS, CAPSULE.DR 12/11/20 Travoprost (Travatan Z) 5 Ml Drops, 1 DROP OU HS, DROP 06/26/18 Nitroglycerin (Nitroglycerin) 0.4 Mg Tab.subl, 0.4 MG SL AD, TAB.SL 06/26/18 Lorazepam (Lorazepam) 1 Mg Tablet, 1 MG PO BID PRN for ANXIETY, TAB 06/26/18 Cholecalciferol (Vitamin D3) (Vitamin D-400) 400 Unit Tablet, 400 UNIT PO DAILY, TAB 06/05/18 Atorvastatin Calcium (Atorvastatin Calcium) 20 Mg Tablet, 20 MG PO HS, TAB 07/05/17 Metoprolol Succinate (Metoprolol Succinate) 25 Mg Tab.er.24h, 25 MG PO DAILY, TAB 07/05/17 Brimonidine Tartrate/Timolol (Combigan Eye Drops) 5 Ml Drops, 1 DROP OU BID, DROP 07/05/17 Oxybutynin Chloride (Oxybutynin Chloride ER) 10 Mg Tab.er.24, 10 MG PO DAILY 07/05/17 Lisinopril (Lisinopril) 40 Mg Tablet, 40 MG PO DAILY, TAB 12/16/15 Past Medical History Past Medical History: Depression, Hypertension, Prostatitis Medical History Other: PROSTATE Past Surgical History: Cholecystectomy, Other Surgical History Other: HERNIA Social History Social History: Negative, Lives with family ROS Dictation CONSTITUTIONAL: No chills, no fever, no weakness, no diaphoresis, no malaise. HEAD/FACE: No signs of trauma. EENT: No eye pain, no blurred vision, no tearing, no double vision, no ear pain, no ear discharge, no nose pain, no nasal congestion, no throat pain, no throat swelling, no mouth pain. RESPIRATORY: No cough, no orthopnea, no SOB, no stridor, no wheezing. CARDIOVASCULAR: No chest pain, no edema, no palpitations, no syncope. GASTROINTESTINAL/ABDOMINAL: No abdominal pain, no constipation, no diarrhea, no nausea, no vomiting. GENITOURINARY: No abnormal discharge, no dysuria, no frequent urination, no hematuria. No complaints of pain in the genitals. MUSCULOSKELETAL: No back pain, no gout, no joint pain, no joint swelling, no muscle pain, no muscle stiffness, no neck pain. INTEGUMENTARY: No change in color, no change in hair/nails, no dryness, no lesion, no lumps, no rash. NEUROLOGICAL/PSYCH: No anxiety, not depressed, no emotional problem, no headache, no numbness, no pre-existing deficit, no history of seizures, no tremors, no weakness. HEMATOLOGIC/LYMPHATIC: Not anemic, no history of blood clots, no apparent bleeding, no bruising, glands not swollen. All Systems Negative, Except as Noted. Physical Exam Physical Exam Dictation VITAL SIGNS: Reviewed. GENERAL APPEARANCE: Alert, oriented x3, no acute distress HEAD AND FACE: 1 cm laceration to the bridge of the nose, subconjunctival hemorrhage on the right PERRL, no eyelid trauma EARS: Pinnas intact and no signs of trauma or erythema. Ear canals clear and no discharge. TMs no erythema. NOSE: No discharge, no bleeding. OROPHARYNX: Mouth normal, teeth no caries, tongue pink. Pharynx clear, no erythema. Tonsils no exudates, no abscesses noted. Mucous membrane moist. NECK: Supple, non-tender, no thyromegaly, no masses, no JVD, no bruits. BREAST: Deferred. CHEST: No tenderness, no crepitus, no paradoxical movement, no retractions. LUNGS: Clear, well-ventilated, symmetric, no rales, no wheezing, no rhonchi, no stridor, good breath sounds bilaterally. HEART: Regular rate, regular rhythm, no murmur, no gallops. VASCULAR: No peripheral edema. ABDOMEN: Soft, positive bowel sounds, nondistended, no guarding, nontender, no rebound, no masses no hepatomegaly, no splenomegaly, no Buitrago's sign, no hernias. RECTAL: Deferred. GENITAL: Deferred. NEUROLOGICAL: Normal speech, gross motor function intact, gross sensory function intact. MUSCULOSKELETAL: Neck nontender, full range of motion, back nontender, full range of motion. EXTREMITIES: Nontender, full range of motion. SKIN: Color pink, dry, no turgor, no rash, no lacerations, no abrasions, no contusions. LYMPHATICS: Deferred. MDM CC: Head trauma Historian: Patient Comorbidities: Advanced age, hypertension, BPH Limitations by social determinants of health: None Differential diagnosis: Minor head injury, brain bleed, fracture, laceration, other. Vital signs: Stable, remained stable in the ER The laceration on the bridge of the nose repaired with skin glue. No complications. CT head without contrast (independently interpreted by me): No obvious bleeds or fractures CT cervical spine without contrast (independently interpreted by me): No obvi ous fractures Patient had minor head trauma, laceration of the nose. No complications. He was at his baseline mentation baseline vital signs. We will DC to PCP follow up as needed. ED Course Orders Procedure Category Date Status Time Ct Head/Brain W/O CT 06/20/24 Resulted Contrast 08:02 Ct Cervical Spine W/O CT 06/20/24 Taken Contrast 08:02 Dermabond (Dermabond) PHA 06/20/24 Complete 09:00 Dermabond (Dermabond) PHA 06/20/24 Complete 08:41 Current Medications Medications (Trade) Dose Ordered Sig/Dmitri Route PRN Reason Start Time Stop Time Status Last Admin Dose Admin Octyl Cyanoacrylate (Dermabond) 1 each STK-MED ONCE TP 06/20/24 08:41 06/20/24 08:41 DC Octyl Cyanoacrylate (Dermabond) 2 each ONCE ONCE TP 06/20/24 09:00 06/20/24 09:01 DC 06/20/24 08:45 Vital Signs Date Time Temp Pulse Resp B/P (MAP) Pulse Ox O2 Delivery O2 Flow Rate FiO2 06/20/24 08:15 60 16 164/78 99 Room Air* 0 21 06/20/24 07:55 97.5 57 20 187/93 98 Room Air 0 DX & DISP Disposition: Discharge Departure Impression: Primary Impression: Laceration of nose Additional Impressions: Minor head trauma, Subconjunctival hemorrhage of right eye Condition: Stable Additional Instructions: The CT scans did not show any major injuries. Your symptoms are consistent with a laceration and soft tissue injury. The eye bleeding (subconjunctival hemorrhage) should not cause any problems and we will go away on its own. Your laceration was repaired with skin glue. This will come off on its own once the wound is healed. Keep the area clean with soap and water. You can apply ice to your face to reduce swelling. You can use [id number] medications such as Tylenol or ibuprofen as needed for pain or discomfort. Please immediately return to the emergency department if you have any concerns. Referrals: CAS OTTO MD (PCP) ANA PATRICIA DO Jun 20, 2024 08:07
[2024-06-20] MEDS: OCTYL 2-CYANOACRYLATE 1 EACH TP ONE ×2 (08:45)
--- NOTE | 2024-06-20 08:56 | HMCIMG ---
CT HEAD/BRAIN W/O CONTRAST HISTORY: Status post fall COMPARISON: None TECHNIQUE: Multiple sequential axial images of the head were obtained from the base of the skull through vertex. Patient was not given contrast through intravenous route. FINDINGS: The ventricles and extraventricular CSF spaces are dilated consistent with cerebral atrophy. Nonspecific white matter changes seen. There is no midline shift, mass effect or herniation. No acute intracranial bleed is seen. Visualized portion of the paranasal sinuses are grossly within normal limits. IMPRESSION: 1. No acute intracranial bleed is seen. 2. Atrophy with white matter changes. CT was performed with one or more following dose reduction techniques: automated exposure control, adjustment of the mA and kv according to patient's size, or use of a iterative reconstruction technique.
--- NOTE | 2024-06-20 09:12 | HMCIMG ---
CT CERVICAL SPINE W/O CONTRAST HISTORY: Status post fall COMPARISON: None TECHNIQUE: Multiple sequential axial images of the cervical spine were obtained including post processing sagittal and coronal reconstruction images. Patient was not given contrast through intravenous route. FINDINGS: There are degenerative changes with cervical spine spondylosis. Central canal narrowing is seen worse as C5-6 and C6-7 levels. There is reversal of normal lordotic cervical curvature which may be related to muscle spasm or positioning. There is no loss of vertebral height. Evaluation for disc and cord pathology is limited with CT study. No evidence of fracture or dislocation is seen. There is atherosclerosis. IMPRESSION: 1. No fracture is seen. DJD with cervical spine spondylosis. CT was performed with one or more following dose reduction techniques: automated exposure control, adjustment of the mA and kv according to patient's size, or use of a iterative reconstruction technique.
[2024-06-20 09:20] VITALS: BP 154/75; PULSE 63; RESP 16; TEMP 97.8; O2SAT 98
== END 2024-06-20 09:29 | disposition home or self-care (01) ==
LOC: EDH 07:53
DX: S01.21XA Laceration without foreign body of nose, initial encounter (principal); H11.31 Conjunctival hemorrhage, right eye; F32.A Depression, unspecified; I10 Essential (primary) hypertension; Z79.899 Other long term (current) drug therapy; Z90.49 Acquired absence of other specified parts of digestive tract; W06.XXXA Fall from bed, initial encounter; Y93.89 Activity, other specified; Y92.89 Other specified places as the place of occurrence of the external cause; Y99.8 Other external cause status
CPT/HCPCS: 12011; 70450; 72125; 99284